=== PATIENT | female | born 1980 | race American Indian/Alaskan Native ===

== ENCOUNTER 2016-05-30 14:57 | Inpatient (IN) | payer MEDICAID ==
[2016-05-30 16:00] LABS: BASO # 0.1 K/uL (0.0-0.2); BASO % 1.2 % (0.0-2.0); EOS # 0.1 K/uL (0.0-0.7); EOS % 1.3 % (0.0-4.0); HEMATOCRIT 41.7 % (34.0-47.0); LYMPH # 2.3 K/uL (1.0-4.3); LYMPH % 30.9 % (20.0-40.0); MEAN CELL VOLUME 86.2 fL (81.0-99.0); MEAN CORPUSCULAR HEMOGLOBIN 28.5 pg (27.0-31.0); MEAN CORPUSCULAR HGB CONC 33.1 g/dL (33.0-37.0); MEAN PLATELET VOLUME 7.9 fL (7.2-11.7); MONO # 0.6 K/uL (0.0-0.8); MONO % 8.4 % (0.0-10.0); NRBC % 0.1 % (0.0-2.0); RED CELL DISTRIBUTION WIDTH 14.6 % (11.5-14.5); WHITE BLOOD COUNT 7.5 K/uL (4.8-10.8)
[2016-05-30 16:06] LABS: CHLORIDE 105 mmol/L (98-107); POTASSIUM 3.7 mmol/L (3.6-5.2); SODIUM 144 mmol/L (132-148)
[2016-05-30 16:08] LABS: BILIRUBIN,TOTAL 0.3 mg/dL (0.2-1.3); CARBON DIOXIDE 22 mmol/L (22-30); GFR AFRICAN-AMERICAN > 60
[2016-05-30 16:09] LABS: ALB/GLOB RATIO 1.5 (1.0-2.1); ALCOHOL SERUM 210 mg/dl (0-10); ALKALINE PHOSPHATASE 49 U/L (38-126); ALT/SGPT 15 U/L (9-52); AST/SGOT 22 U/L (14-36); BLOOD UREA NITROGEN 12 mg/dL (7-17); CALCIUM 8.9 mg/dl (8.6-10.4); GLUCOSE,RANDOM 58 mg/dL (65-105); TOTAL PROTEIN 7.9 g/dL (6.3-8.3)
[2016-05-30 16:15] LABS: RBC URINE 1 /hpf (0-3); URINE BILIRUBIN NEGATIVE (NEGATIVE); URINE BLOOD NEGATIVE (NEGATIVE); URINE COLOR Straw (YELLOW); URINE GLUCOSE (UA) NORMAL (Normal); URINE KETONE NEGATIVE (NEGATIVE); URINE LEUKOCYTE ESTERASE NEG Leu/uL (Negative); URINE PROTEIN NEGATIVE (NEGATIVE); URINE UROBILINOGEN NORMAL mg/dL (0.2-1.0); WBC URINE < 1 /hpf (0-5)
--- NOTE | 2016-05-30 17:15 | C.PDOC ---
History Of Present Illness 35 y/o female presents to the emergency department requesting detox from alcohol. She reports last use this morning. Denies any suicidal ideation or homicidal ideation. She also reports cast to the left ankle due to fracture two weeks prior but denies any pain, weakness, numbness, or other complaints. Note that the patient has already been prescreened for detox. Chief Complaint (Nursing): Medical Clearance History Per: Patient History/Exam Limitations: no limitations Onset/Duration Of Symptoms: Days, Persistent Current Symptoms Are (Timing): Still Present Recent travel outside of the [place]: No Past Medical History Reviewed: Historical Data, Nursing Documentation, Vital Signs Vital Signs: Last Vital Signs Temp 99 F 05/30/16 17:58 Pulse 102 H 05/30/16 17:58 Resp 18 05/30/16 17:58 BP 116/69 05/30/16 17:58 Pulse Ox 98 05/30/16 17:58 - Medical History PMH: HTN Surgical History: No Surg Hx Family History: States: Unknown Family Hx - Social History Hx Tobacco Use: Yes Hx Alcohol Use: Yes Hx Substance Use: Yes Review Of Systems Except As Marked, All Systems Reviewed And Found Negative. Constitutional: Positive for: Other (requesting detox) Musculoskeletal: Negative for: Other (pain) Neurological: Negative for: Weakness, Numbness Psych: Negative for: Suicidal ideation (or homicidal ideation) Physical Exam - Physical Exam Appears: Non-toxic, No Acute Distress Skin: Normal Color, Warm, Dry Head: Atraumatic, Normacephalic Eye(s): bilateral: Normal Inspection, PERRL Oral Mucosa: Moist Neck: Normal ROM, Supple Chest: Symmetrical Cardiovascular: Rhythm Regular Respiratory: Normal Breath Sounds, No Rales, No Rhonchi, No Wheezing Gastrointestinal/Abdominal: Normal Exam, Soft, No Tenderness Extremity: Other (cast observed to left ankle) Neurological/Psych: Oriented x3, Normal Speech, Normal Cognition ED Course And Treatment - Laboratory Results Result Diagrams: 05/30/16 15:49 05/30/16 15:49 O2 Sat by Pulse Oximetry: 100 (ra) Pulse Ox Interpretation: Normal Medical Decision Making Medical Decision Making: Plan: * Labs Patient has been medically cleared and accepted for detox. Disposition - Disposition Disposition: HOSPITALIZED Disposition Time: 16:30 Condition: STABLE - Clinical Impression Clinical Impression: Alcohol dependence - Scribe Statement The provider has reviewed the documentation as recorded by the Scribe (Kateryna King) Provider Attestation: All medical record entries made by the Scribe were at my direction and personally dictated by me. I have reviewed the chart and agree that the record accurately reflects my personal performance of the history, physical exam, medical decision making, and the department course for this patient. I have also personally directed, reviewed, and agree with the discharge instructions and disposition.
[2016-05-31] MEDS: Multiple Vitamins Tab PO SCH (09:54)
--- NOTE | 2016-05-31 12:25 | PCM.PSYCH ---
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 Patient reports of a long history of drinking and schizoaffective disorder. As per the patient she started drinking when she was young. As per the patient couple of weeks ago she fell down at her home and broke her ankle. As a result she started drinking heavily up to 4 pints of vodka on a daily basis. As the patient yesterday she consumed 1 pint of vodka and started experiencing withdrawal symptoms and so came to the hospital to get help. Patient reports of irritable mood, and reports withdrawal symptoms including sweating, headaches, anxiety, and nausea. Patient reports that due to the medication her schizoaffective symptoms are under control. She denies any feelings of hopelessness and helplessness. She denies any suicidal ideation or homicidal ideation. Patient denies any auditory or visual hallucinations or any psychotic symptoms or any manic symptoms. She denies any other substance abuse. Past psychiatric history Patient states history of multiple inpatient psychiatric hospitalizations, and reports history of follow-up with a psychiatrist. Patient denies any history of suicidal ideation or attempt or any history of homicidal ideation or attempt in the past. Patient reports history of auditory & visual hallucinations in the past Past medical history HTN Current Medications: Active Medications Generic Name Dose Route Start Last Admin Trade Name Freq PRN Reason Stop Dose Admin Amlodipine Besylate 5 mg 05/31/16 10:00 05/31/16 09:54 Norvasc PO 5 mg DAILY MALLORY Administration Bacitracin 1 gm 05/31/16 18:00 Bacitracin TOP BID M[facility] Chlordiazepoxide 25 mg 05/30/16 21:05 05/30/16 23:54 Librium PO 25 mg Q4 PRN Administration alcohol withdrawal Chlordiazepoxide 25 mg 05/31/16 06:00 05/31/16 06:51 Librium PO 06/04/16 05:59 25 mg Q6H MALLORY Administration Taper Clonidine HCl 0.1 mg 05/30/16 23:46 05/31/16 06:51 Catapres PO 0.1 mg Q4H PRN Administration Symptoms of alcohol withdrawl Diphenhydramine HCl 25 mg 05/31/16 08:47 05/31/16 09:54 Benadryl PO 25 mg Q6 PRN Administration Itching / Pruritus Fluoxetine HCl 20 mg 05/31/16 10:00 05/31/16 09:54 Prozac PO 20 mg DAILY MALLORY Administration Folic Acid 1 mg 05/31/16 10:00 05/31/16 09:54 Folic Acid PO 1 mg DAILY M[facility]ORY Administration Hydroxyzine HCl 25 mg 05/30/16 23:54 Atarax PO Q4H PRN Anxiety Ibuprofen 600 mg 05/31/16 11:38 05/31/16 12:13 Motrin Tab PO 600 mg TID PRN Administration Pain, moderate (4-7) Multivitamins 1 tab 05/31/16 10:00 05/31/16 09:54 Hexavitamin PO 1 tab DAILY MALLORY Administration Prazosin HCl 1 mg 05/31/16 22:00 Minipress PO HS MALLORY Risperidone 1 mg 05/31/16 10:00 05/31/16 09:54 Risperdal Tab PO Not Given BID [facility] Thiamine HCl 100 mg 05/31/16 10:00 05/31/16 09:54 Vitamin B1 Tab PO 100 mg DAILY MALLORY Administration Topiramate 50 mg 05/31/16 10:00 05/31/16 09:55 Topamax PO 50 mg BID M[facility]ORY Administration Trazodone HCl 50 mg 05/30/16 20:59 Desyrel PO HS PRN insomnia Past Psychiatric History - Past Psychiatric History Previous Treatment History: Inpatient Pertinent Medical Hx (Current Medical&Sleep Prob, Allergies): Allergies Allergy/AdvReac Type Severity Reaction Status Date / Time No Known Allergies Allergy Verified 05/30/16 15:16 Acetaminophen [Tylenol Extra Strength] 500 mg PO Q4 PRN 05/30/16 Bupropion HCl [Bupropion HCl Xl] 150 mg PO DAILY 05/30/16 Fluoxetine HCl [Prozac] 40 mg PO DAILY 05/30/16 Prazosin [Prazosin HCl] 1 mg PO HS 05/30/16 Risperidone [Risperdal] 1 mg PO BID 05/30/16 Topiramate 50 mg PO BID 05/30/16 amLODIPine [Norvasc] 5 mg PO DAILY 05/30/16 oxyCODONE [oxyCODONE Immediate Release Tab] 5 mg PO Q4 PRN 05/30/16 Review of Systems - Review of Systems All systems: reviewed and no additional remarkable complaints except - Psychiatric Psychiatric: Anxiety, Irritability Mental Status Examination - Personal Presentation Personal Presentation: Looks stated age - Affect Affect: Constricted - Motor Activity Motor Activity: Calm - Reliability in Providing Information Reliability in Providing Information: Good - Speech Speech: Organized - Mood Mood: Anxious - Formal Thought Process Formal Thought Process: No Impairment - Obsessions/Compulsions Obsessions: No Compulsions: No - Cognitive Functions Orientation: Person, Place, Situation, Time Sensorium: Alert Attention/Concentration: Attentive Abstract Thinking: [place] Estimate of Intelligence: Below average Judgement: Imparied, as evidence by: Poor judgement, Intact, as evidence by: Insight regarding need for hospitalization - Risk Risk: Withdrawal, Diminished functioning - Strength & Assets Inventory Strength & Assets Inventory: Cooperative - Limitations Limitations: Living alone DSM 5 DX - DSM 5 DSM 5 Diagnosis: Alcohol use disorder severe Alcohol withdrawal uncomplicated Schizoaffective disorder bipolar type - Recommended/Plan of Treatment Treatment Recommendations and Plan of Treatment: Alcohol use disorder severe CBT Psychoeducation Supportive therapy, individual therapy Use MD for abstinence Alcohol withdrawal uncomplicated CBT Psychoeducation Supportive therapy, individual therapy Librium when necessary Start Librium taper Start folic acid/thiamine/multivitamin Schizoaffective disorder bipolar type CBT Psychoeducation Supportive therapy, individual therapy Prozac 20 mg mg PO daily Trazodone 50 mg PO Q HS Risperdal 1 mg by mouth daily twice a day HTN Continue prescribed medications (Amlodipine) Monitor signs and symptoms PTSD Prazosin 1 mg by mouth daily at bedtime - Smoking Cessation Smoking Cessation Initiated: No
--- NOTE | 2016-05-31 17:27 | CP.PCM.CON ---
History of Present Illness - History of Present Illness History of Present Illness: Orthopedic consultation note for Dr. Velasquez: 35 y/o female patient with history of Alcohol abuse seen and evaluated at bedside in DETOX unit after request for consult. Patient states that she had a history of left ankle fracture 2 weeks ago and has a left ankle ORIF surgery at [facility] on last Thursday. Patient c/o left lower extremity pain. Patient denies any symptoms of N/V/F/SOB/Chest pain. Patient was on NWB to the left lower extremity and using crutches for ambulation. Past Patient History - Past Social History Smoking Status: Light Smoker < 10 Cigarettes Daily - CARDIAC Hx Hypertension: Yes - PULMONARY Hx Tuberculosis: No - NEUROLOGICAL HX Cerebrovascular Accident: No Hx Seizures: No - HEMATOLOGICAL/ONCOLOGICAL Hx Cancer: No Hx Human Immunodeficiency Virus (HIV): No - MUSCULOSKELETAL/RHEUMATOLOGICAL Hx Falls: Yes - GENITOURINARY/GYNECOLOGICAL Hx Sexually Transmitted Disorders: No - PSYCHIATRIC Hx Substance Use: No - SURGICAL HISTORY Hx Orthopedic Surgery: Yes (left ankle 2 weeks ago) Meds Allergies/Adverse Reactions: Allergies Allergy/AdvReac Type Severity Reaction Status Date / Time No Known Allergies Allergy Verified 05/30/16 15:16 - Medications Medications: Current Medications Amlodipine Besylate (Norvasc) 5 mg PO DAILY [facility] Last Admin: 05/31/16 09:54 Dose: 5 mg Bacitracin (Bacitracin) 1 gm TOP BID [facility] Chlordiazepoxide (Librium) 25 mg PO Q4 PRN PRN Reason: alcohol withdrawal Last Admin: 05/30/16 23:54 Dose: 25 mg Chlordiazepoxide (Librium) 25 mg PO Q6H MALLORY PRN Reason: Taper Stop: 06/04/16 05:59 Last Admin: 05/31/16 13:20 Dose: 25 mg Clonidine HCl (Catapres) 0.1 mg PO Q4H PRN PRN Reason: Symptoms of alcohol withdrawl Last Admin: 05/31/16 06:51 Dose: 0.1 mg Diphenhydramine HCl (Benadryl) 25 mg PO Q6 PRN PRN Reason: Itching / Pruritus Last Admin: 05/31/16 09:54 Dose: 25 mg Fluoxetine HCl (Prozac) 20 mg PO DAILY [facility] Last Admin: 05/31/16 09:54 Dose: 20 mg Folic Acid (Folic Acid) 1 mg PO DAILY [facility] Last Admin: 05/31/16 09:54 Dose: 1 mg Gabapentin (Neurontin) 300 mg PO TID [facility] Hydroxyzine HCl (Atarax) 25 mg PO Q4H PRN PRN Reason: Anxiety Ibuprofen (Motrin Tab) 600 mg PO TID PRN PRN Reason: Pain, moderate (4-7) Last Admin: 05/31/16 12:13 Dose: 600 mg Multivitamins (Hexavitamin) 1 tab PO DAILY [facility] Last Admin: 05/31/16 09:54 Dose: 1 tab Prazosin HCl (Minipress) 1 mg PO HS [facility] Risperidone (Risperdal Tab) 1 mg PO BID [facility] Last Admin: 05/31/16 09:54 Dose: Not Given Thiamine HCl (Vitamin B1 Tab) 100 mg PO DAILY [facility] Last Admin: 05/31/16 09:54 Dose: 100 mg Topiramate (Topamax) 50 mg PO BID [facility] Last Admin: 05/31/16 09:55 Dose: 50 mg Trazodone HCl (Desyrel) 50 mg PO HS PRN PRN Reason: insomnia Physical Exam - Constitutional Appears: Well, Non-toxic, No Acute Distress - Head Exam Head Exam: ATRAUMATIC - Extremities Exam Additional comments: Left lower extremity focused exam CFT is less than 3 seconds ( x5), Cast is intact, clean and dry. - Neurological Exam Neurological exam: Alert, CN II-XII Intact, Oriented x3 Results - Vital Signs Recent Vital Signs: Last Vital Signs Temp 97.5 F L 05/31/16 14:24 Pulse 92 H 05/31/16 14:24 Resp 16 05/31/16 14:24 BP 121/84 05/31/16 14:24 Pulse Ox 98 05/31/16 14:24 - Labs Result Diagrams: 05/30/16 15:49 05/30/16 15:49 Labs: Laboratory Results - last 24 hr 05/30/16 18:18 POC Glucose (mg/dL) 91 Assessment & Plan - Assessment and Plan (Free Text) Assessment: 35 y/o female patient with left lower extremity pain secondary to tightness of below knee cast. Plan: Patient seen and evaluated at bedside All the questions and concerns were addressed Discussed with attending Dr. Velasquez Left lower extremity cast was Bivalved and created more space for lower extremity LLE x rays: left ankle ORIF with plate and screws, no other bony fractures noted Advised patient to keep NWB to the LLE Will Order Ultram fro prn pain Advised patient to follow up with her Orthopedic doctor for post op care.
[2016-05-31] MEDS: Bacitracin Ointment 30 GM TUBE TOP SCH (18:23)
--- NOTE | 2016-06-01 08:34 | RAD ---
Left ankle three views History: Left ankle open reduction internal fixation. Comparison: None available. Findings Overlying cast obscures fine osseous details. Side plate with screw fixation through the distal left fibula. Impression: Postsurgical changes.
[2016-06-01] MEDS: Multiple Vitamins Tab PO SCH (09:35)
[2016-06-01] MEDS: Bacitracin Ointment 30 GM TUBE TOP SCH ×2 (09:36→19:10)
--- NOTE | 2016-06-01 12:06 | PCM.PYCHPN ---
Psychiatric Progress Note - Psychiatric Progress Note Patient seen today, length of contact: 15 MIN Patient Chief Complaint: I'm in severe pain Problems Identified/Issues Discussed: Patient seen and evaluated, chart reviewed and discussed with the nurse. Patient reports irritability and agitation. She reports withdrawal symptoms including shakes, anxiety, headaches and sweating. She reports of severe pain in her ankle because of plaster of malini. However she denies any auditory hallucinations and persecutory delusions. She remained calm and cooperative and denies any suicidal ideation or homicidal ideation. She is taking medication and denies any side effects. medicine was consulted because of ankle fracture Supportive therapy and psychoeducation were given Medication Change: Yes (Librium taper, DC Risperdal) Medical Record Reviewed: Yes Mental Status Examination - Cognitive Function Orientation: Person, Place, Situation, Time Memory: Intact Concentration: Poor Association: WNL Fund of Knowledge: Poor - Mood Mood: Anxious - Affect Affect: Constricted - Formal Thought Process Formal Thought Process: Delusions - Suicidal Ideation Suicidal Ideation: No - Homicidal Ideation Homicidal Ideation: No Goal/Treatment Plan - Goal/Treatment Plan Need for Continued Stay: Discharge may exacerbated symptoms, Severe functional impairment Progress Toward Problem(s) and Goals/Treatment Plan: Alcohol use disorder severe CBT Psychoeducation Supportive therapy, individual therapy Use [place] for abstinence Alcohol withdrawal uncomplicated CBT Psychoeducation Supportive therapy, individual therapy Librium when necessary Librium taper folic acid/thiamine/multivitamin Schizoaffective disorder bipolar type CBT Psychoeducation Supportive therapy, individual therapy Prozac 20 mg mg PO daily Trazodone 50 mg PO Q HS DC Risperdal 1 mg by mouth daily twice a day HTN Continue prescribed medications (Amlodipine) Monitor signs and symptoms PTSD Prazosin 1 mg by mouth daily at bedtime Left ankle fracture Medicine consulted - Smoking Cessation Smoking Cessation Initiated: No
[2016-06-01] MEDS: buPROPion 150 mg/24 Hours XL Tab PO SCH (14:19)
[2016-06-02] MEDS: Bacitracin Ointment 30 GM TUBE TOP SCH ×2 (10:53→17:35)
[2016-06-02] MEDS: Multiple Vitamins Tab PO SCH (10:54)
[2016-06-02] MEDS: buPROPion 150 mg/24 Hours XL Tab PO SCH (10:54)
--- NOTE | 2016-06-02 13:55 | PCM.PYCHPN ---
Psychiatric Progress Note - Psychiatric Progress Note Patient seen today, length of contact: 16 min Patient Chief Complaint: "Tired" Problems Identified/Issues Discussed: Pt. is a 35 y/o F employed and domiciled , w/ PMHx of EtOH use disorder and HTN here for EtOH detox. Pt. ambulates with two crutches due to broken left ankle. Pt. does not complain of any side-effects to medications, nor does she complain of withdrawal symptoms. Pt. is interested in finding a new outpatient rehab program, because she feels that her previous one ([facility] in [place], [place]) was not strict enough. Pt. also inquires about alternatives to percocet for pain control, and will be prescribed toradol to take home. Medical Problems: Htn Medication Change: Yes (Librium taper, DC Risperdal) Medical Record Reviewed: Yes Mental Status Examination - Cognitive Function Orientation: Person, Place, Situation, Time Memory: Intact Concentration: WNL Association: WN Fund of Knowledge: WNL - Mood Mood: Neutral - Affect Affect: Constricted - Speech Speech: Appropriate - Formal Thought Process Formal Thought Process: No Impairment - Suicidal Ideation Suicidal Ideation: No - Homicidal Ideation Homicidal Ideation: No Goal/Treatment Plan - Goal/Treatment Plan Need for Continued Stay: Discharge may exacerbated symptoms, Severe functional impairment Progress Toward Problem(s) and Goals/Treatment Plan: Continue detox Support and psychoed NE and CBT No change in meds Refer to IOP Estimated Date of D/C: 06/03/16
[2016-06-02 16:10] VITALS: RESP 18
--- NOTE | 2016-06-03 08:51 | PCM.PYCHDC ---
Mental Status Examination - Mental Status Examination Orientation: Person, Place, Situation, Time Memory: Intact Affect: Broad Speech: Appropriate Attention: WNL Concentration: WNL Association: WNL Fund of Knowledge: WNL Formal Thought Process: No Impairment Suicidal Ideation: No Current Homicidal Ideation?: No Discharge Summary - Discharge Note Reason for Hospitalization: Alcohol use disorder severe Alcohol withdrawal uncomplicated Schizoaffective disorder bipolar type Consultations:: List each consultation separately and include: 1. Reason for request. 2. Findings. 3. Follow-up Summary of Hospital Course include:: 1. Description of specific treatment plan utilized for patients during their course of treatmen. 2. Summarize the time- course for resolution of acute symptoms and/or regressed behaviors. 3. Describe issues identified and worked on during hospitalization. 4. Describe medication utilized. 5. Describe medical problems identified and treated. 6. 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 Patient reports of a long history of drinking and schizoaffective disorder. As per the patient she started drinking when she was young. As per the patient couple of weeks ago she fell down at her home and broke her ankle. As a result she started drinking heavily up to 4 pints of vodka on a daily basis. As the patient yesterday she consumed 1 pint of vodka and started experiencing withdrawal symptoms and so came to the hospital to get help. Patient reports of irritable mood, and reports withdrawal symptoms including sweating, headaches, anxiety, and nausea. Patient reports that due to the medication her schizoaffective symptoms are under control. She denies any feelings of hopelessness and helplessness. She denies any suicidal ideation or homicidal ideation. Patient denies any auditory or visual hallucinations or any psychotic symptoms or any manic symptoms. She denies any other substance abuse. Past psychiatric history Patient states history of multiple inpatient psychiatric hospitalizations, and reports history of follow-up with a psychiatrist. Patient denies any history of suicidal ideation or attempt or any history of homicidal ideation or attempt in the past. Patient reports history of auditory & visual hallucinations in the past Past medical history HTN Pt is seen, chart reviewed, case discussed. Pt feels well, without any symptoms and is ready for discharge. Her plan is to attend [facility]. Attended groups and activities NC/CBT used Support and psychoeducation given Librium detox completed Pt responded well to treatment - Final Diagnosis (DSM 5) Condition upon Discharge: STABLE DSM 5: Alcohol use disorder severe Alcohol withdrawal uncomplicated Schizoaffective disorder bipolar type Disposition: HOME/ ROUTINE Follow-up Treatment Plan: Continue below meds Attend aftercare: [facility] Use relapse prevention skills Attend AA meetings Return to ER if experience suicidal ideation, homicidal ideation, agitation Prescriptions/Medication Reconciliation: hydrOXYzine HCl [Atarax] 50 mg PO HS PRN #30 tab PRN Reason: Insomnia DiphenhydrAMINE [Benadryl] 50 mg PO Q8 PRN #60 cap PRN Reason: Anxiety Prazosin HCl [Minipress] 1 mg PO HS #30 cap Gabapentin [Neurontin] 300 mg PO TID #90 cap Nicotine 21 mg/24 hr [Nicoderm Cq] 1 patch TD DAILY #30 patch amLODIPine [Norvasc] 5 mg PO DAILY #30 tab FLUoxetine [Prozac] 20 mg PO DAILY #30 cap Topiramate [Topamax] 50 mg PO BID #60 tab traMADol [Ultram] 50 mg PO BID PRN #60 tab PRN Reason: Pain, Mild (1-3) buPROPion XL [Wellbutrin XL] 150 mg PO DAILY #30 t24 - Smoking Cessation Smoking Cessation Medication prescribed: No - Antipsychotic Medications Pt discharged on 2 or more routine antipsychotic medications: No
[2016-06-03] MEDS: Multiple Vitamins Tab PO SCH (09:40)
[2016-06-03] MEDS: buPROPion 150 mg/24 Hours XL Tab PO SCH (09:40)
[2016-06-03] MEDS: Bacitracin Ointment 30 GM TUBE TOP SCH (09:51)
[2016-06-03 13:30] VITALS: BP 101/66; PULSE 95; TEMP 97.3; O2SAT 100
== END 2016-06-03 14:00 | disposition home or self-care (01) | DRG 750 ==
LOC: C.ER 14:57 → C.7D 17:49
PROVIDERS: ADMIT Psychiatry & Neurology Psychiatry; ATTEND Psychiatry & Neurology Psychiatry
PROC: HZ2ZZZZ Detoxification Services for Substance Abuse Treatment (ICD-10-PCS; principal; 2016-05-30)
PROC: HZ59ZZZ Individual Psychotherapy for Substance Abuse Treatment, Supportive (ICD-10-PCS; 2016-05-30)
PROC: GZ3ZZZZ Medication Management (ICD-10-PCS; 2016-05-30)
PROC: GZ56ZZZ Individual Psychotherapy, Supportive (ICD-10-PCS; 2016-05-30)
DX: F10.230 Alcohol dependence with withdrawal, uncomplicated (principal); F25.0 Schizoaffective disorder, bipolar type; F43.10 Post-traumatic stress disorder, unspecified; I10 Essential (primary) hypertension; W19.XXXD Unspecified fall, subsequent encounter; S82.892D Other fracture of left lower leg, subsequent encounter for closed fracture with routine healing

== ENCOUNTER 2017-08-14 14:29 | Inpatient (IN) | payer MEDICAID ==
[2017-08-14 15:22] LABS: SQUAMOUS EPITHIAL 3 /hpf (0-5); URINE BILIRUBIN NEGATIVE (NEGATIVE); URINE BLOOD NEGATIVE (NEGATIVE); URINE CLARITY Clear (Clear); URINE COLOR Yellow (YELLOW); URINE GLUCOSE (UA) NORMAL (Normal); URINE LEUKOCYTE ESTERASE NEG Leu/uL (Negative); URINE PROTEIN NEGATIVE (NEGATIVE); URINE UROBILINOGEN NORMAL mg/dL (0.2-1.0)
[2017-08-14 15:31] LABS: BASO # 0.1 K/uL (0.0-0.2); BASO % 0.9 % (0.0-2.0); EOS # 0.2 K/uL (0.0-0.7); EOS % 2.8 % (0.0-4.0); HEMOGLOBIN 11.5 g/dL (11.0-16.0); LYMPH # 2.2 K/uL (1.0-4.3); LYMPH % 24.9 % (20.0-40.0); MEAN CELL VOLUME 82.5 fL (81.0-99.0); MEAN CORPUSCULAR HEMOGLOBIN 27.6 pg (27.0-31.0); MEAN CORPUSCULAR HGB CONC 33.5 g/dL (33.0-37.0); MEAN PLATELET VOLUME 7.7 fL (7.2-11.7); MONO # 0.6 K/uL (0.0-0.8); MONO % 6.5 % (0.0-10.0); NEUT # 5.6 K/uL (1.8-7.0); NEUT % 64.9 % (50.0-75.0); RBC 4.17 Mil/uL (3.80-5.20); RED CELL DISTRIBUTION WIDTH 14.8 % (11.5-14.5); WHITE BLOOD COUNT 8.7 K/uL (4.8-10.8)
[2017-08-14 15:43] LABS: BARBITURATES, UR NEGATIVE (NEGATIVE); BENZODIAZEPINES, UR NEGATIVE (NEGATIVE); OPIATES, UR NEGATIVE (NEGATIVE); PHENCYCLIDINE, UR NEGATIVE (NEGATIVE)
--- NOTE | 2017-08-14 15:51 | C.PDOC ---
History Of Present Illness 36 y/o female with PMHx of alcohol and benzo abuse, comes in to the ED requesting detox. Last use was earlier today. Patient denies any active physical complaints. Also denies having suicidal or homicidal ideation. Time Seen by Provider: 08/14/17 14:56 Chief Complaint (Nursing): Substance Abuse History Per: Patient History/Exam Limitations: no limitations Onset/Duration Of Symptoms: Days Current Symptoms Are (Timing): Still Present Modifying Factor(s): Alcohol, Other (Benzos) Past Medical History Reviewed: Historical Data, Nursing Documentation, Vital Signs Vital Signs: Last Vital Signs Temp 98.7 F 08/14/17 16:17 Pulse 85 08/14/17 16:17 Resp 18 08/14/17 16:17 BP 136/94 H 08/14/17 16:17 Pulse Ox 97 08/14/17 16:17 - Medical History PMH: Anxiety, Bipolar Disorder, Depression, HTN, Post Traumatic Stress Disorder , Schizophrenia Denies: Diabetes, Hepatitis, HIV, Seizures, Sexually Transmitted Disease Other PMH: alcohol and substance abuse - [facility] Procedures DETOXIFICATION SERVICES FOR SUBSTANCE ABUSE TREATMENT (05/30/16) INDIV PSYCHOTHERAPY FOR SUBSTANCE ABUSE TREATMENT, SUPPORT (05/30/16) INDIVIDUAL PSYCHOTHERAPY, SUPPORTIVE (05/30/16) MEDICATION MANAGEMENT (05/30/16) Family History: States: Unknown Family Hx - Social History Hx Tobacco Use: Yes Hx Alcohol Use: Yes Hx Substance Use: No - Immunization History Hx Tetanus Toxoid Vaccination: No Hx Influenza Vaccination: Yes Hx Pneumococcal Vaccination: No Review Of Systems Constitutional: Negative for: Fever Respiratory: Negative for: Shortness of Breath Gastrointestinal: Negative for: Vomiting Psych: Positive for: Other (alcohol/substance abuse). Negative for: Suicidal ideation, Withdrawal Physical Exam - Physical Exam Appears: Well, Non-toxic, No Acute Distress Skin: Normal Color, Warm, No Rash Head: Atraumatic, Normacephalic Eye(s): bilateral: PERRL Ear(s): Bilateral: Normal Nose: No Flaring, No Discharge Oral Mucosa: Moist, No Drooling Tongue: Normal Appearing Throat: No Drooling Neck: Normal ROM, Trachea Midline, No Midline Cervical Tenderness, No Step Off Deformity, Supple Chest: Symmetrical, No Deformity, No Tenderness Cardiovascular: Rhythm Regular Respiratory: Normal Breath Sounds, No Rales, No Rhonchi, No Wheezing Gastrointestinal/Abdominal: Soft, No Tenderness, No Distention, No Guarding Back: No Vertebral Tenderness Extremity: Normal ROM, No Deformity, No Swelling Extremity: Bilateral: Atraumatic, Normal Color And Temperature, Normal ROM Neurological/Psych: Oriented x3, Normal Speech, Normal Cranial Nerves, Normal Motor, Normal Sensation ED Course And Treatment - Laboratory Results Result Diagrams: 08/14/17 15:25 08/14/17 15:25 Lab Interpretation: Normal Urine POC: Negative O2 Sat by Pulse Oximetry: 99 (RA) Pulse Ox Interpretation: Normal Progress Note: Patient was pre-screened for detox. Blood work and urine sent. Labs, UA review and appears normal. Patient is medically cleared for detox. 15: 51 Received call from dock worker, patient accepted to detox unit as per Dr. Pressley with Dx: Alcohol dependance. Pt remained stable during the ED evaluation , agrees with plan. Disposition Discussed With : Leisa Pressley Doctor Will See Patient In The: Hospital - Disposition Disposition: HOSPITALIZED Disposition Time: 15:51 Condition: STABLE - POA Present On Arrival: None - Clinical Impression Clinical Impression: Alcohol dependence - PA / GREEN FEED ATTENDANT / Resident Statement MD/DO has reviewed & agrees with the documentation as recorded. - Scribe Statement The provider has reviewed the documentation as recorded by the Scribe (Francia Mercado) All medical record entries made by the Scribe were at my direction and personally dictated by me. I have reviewed the chart and agree that the record accurately reflects my personal performance of the history, physical exam, medical decision making, and the department course for this patient. I have also personally directed, reviewed, and agree with the discharge instructions and disposition.
[2017-08-14 16:27] LABS: ALB/GLOB RATIO 1.3 (1.0-2.1); ALT/SGPT 21 U/L (9-52); AST/SGOT 27 U/L (14-36); BLOOD UREA NITROGEN 17 mg/dL (7-17); CALCIUM 9.1 mg/dl (8.6-10.4); GFR AFRICAN-AMERICAN > 60; GFR NON-AFRICAN AMERICAN > 60
[2017-08-14] MEDS: Multiple Vitamins Tab PO SCH (17:54)
--- NOTE | 2017-08-14 22:03 | PCM.BM ---
<Ifrah Hernández - Last Filed: 08/14/17 22:01> Treatment Plan Problems - Problems identified on initial assessmt Potential for alcohol withdrawal Date Initiated: 08/14/17 Time Initiated: 22:02 Assessment reference: NA Treatment assets and liabiliti Patient Assests: ADL independent, negotiates basic needs, cognitively intact Patient Liabilities: poor support system, substance abuse (ETOH), medical problems (HTN), other (homeless) - Milieu Protocol Maintain good personal hygiene: daily Encourage regular showers, daily Remind patient to perform daily oral care, daily Assist patient to perform ADL's Conduct patient checks and document Observation sheet: Q15 minutes Maintain personal safety: every shift Educate patient to report safety concerns to staff, every shift Monitor environment for contraband/sharps Medication safety: Monitor for expected outcome, potential side effects: every shift, Assess barriers to learning: every shift, Assess readiness for medication education: every shift <Eliezer Elias - Last Filed: 08/15/17 18:06> - Diagnosis (1) Alcohol use disorder, severe, dependence Status: Acute Interventions: 08/15/17 17:54 * Assess 7x/week regarding severity of withdrawal * Educate regarding risks, benefits, side effects and alternatives of medications * Use Motivational Interviewing for abstinence * Use CBT for relapse prevention * Medication management for withdrawal symptoms * Encourage medication assisted treatment (2) Schizoaffective disorder, bipolar type Status: Acute Interventions: 08/15/17 18:06 * Assess/adjust medications daily and /or as needed * See patient on an individual basis 7x/week to assess symptoms of depression * Monitor for side effects & effectiveness of medications (3) Chronic post-traumatic stress disorder (PTSD) Status: Acute Interventions: 08/15/17 18:06 * Assess/adjust medications daily and /or as needed * See patient on an individual basis 7x/week to assess symptoms of depression * Monitor for side effects & effectiveness of medications <Afua Gonsalves - Last Filed: 08/17/17 08:18> Family Contact Family involvement: Famliy/SO not involved - Goals for Treatment Patient goals for treatment: Complete detox and apply for short term rehab. Discharge/Continuing Care - Education Needs Education Needs: Patient Medication, Patient Diagnosis/Disease Process, Patient Coping Skills, Patient Anger Management skills, Patient Placement options, Patient Community resources - Discharge Discharge Criteria: No longer exhibiting s/s of withdrawal, Reduction of target symptoms Discharge to:: Substance Abuse Rehab - Treatment Team Participation Patient/Family/SO Statement: 08/17/17 08:18 "I wanna go to a 30-day rehab when I'm done..." Discussed with Family/SO: No Was Patient/Family/SO present at Treatment Team Meeting: Yes
[2017-08-15] MEDS: Multiple Vitamins Tab PO SCH (10:28)
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
[2017-08-15] MEDS: Aritificial Tears (15ml) OU PRN (20:40)
[2017-08-16] MEDS: Multiple Vitamins Tab PO SCH (10:46)
--- NOTE | 2017-08-16 16:14 | PCM.PYCHPN ---
Psychiatric Progress Note - Psychiatric Progress Note Patient seen today, length of contact: 15 minute Patient Chief Complaint: I'm still feeling anxiety. Problems Identified/Issues Discussed: Patient seen, chart reviewed, case discussed with the staff. Issues related to illness and treatment were discussed with the patient. Reported compliant with treatment with no adverse affects. Tolerating treatment very well. Reported not feeling better, still feeling anxiety. Aftercare discussed with the patient. At the time of evaluation, patient was awake alert oriented 3, had no delusions , no auditory or visual hallucinations, no suicidal ideations or homicidal ideations. Medical Problems: Hypertension Diagnostic Results: Reviewed DSM 5 Symptoms Update: Some improvement with treatment Medication Change: No Medical Record Reviewed: Yes Mental Status Examination - Cognitive Function Orientation: Person, Place, Situation, Time Memory: Intact Attention: WNL Concentration: WNL Association: [facility] Fund of Knowledge: [facility] Decription of patient's judgement and insights: Fair - Mood Mood: Depressed - Affect Affect: Depressed - Speech Speech: Appropriate - Formal Thought Process Formal Thought Process: No Impairment Psychotic Thoughts and Behaviors: None - Suicidal Ideation Suicidal Ideation: No - Homicidal Ideation Homicidal Ideation: No Goal/Treatment Plan - Goal/Treatment Plan Need for Continued Stay: Remain at risks for inpatient hospitalization, Discharge may exacerbated symptoms, Severe functional impairment Progress Toward Problem(s) and Goals/Treatment Plan: Patient education. Supportive therapy. CBT for relapse prevention. CO for abstinence. Continue treatment as before. Patient wants to go to a 28 day rehabilitation after discharge from the hospital. Estimated Date of D/C: 08/19/17 - Smoking Cessation Smoking Cessation Initiated: Yes
[2017-08-16] MEDS ORDERED: Aluminum Hydroxide/Magnesium Hydroxide Susp (30 mL) PO PRN (22:30)
[2017-08-16] MEDS: Aritificial Tears (15ml) OU PRN (23:12)
--- NOTE | 2017-08-17 09:33 | RAD ---
HISTORY: rehab COMPARISON: No prior. TECHNIQUE: Chest PA and lateral FINDINGS: LUNGS: No active pulmonary disease. PLEURA: No significant pleural effusion identified. No pneumothorax apparent. CARDIOVASCULAR: Normal. OSSEOUS STRUCTURES: No significant abnormalities. VISUALIZED UPPER ABDOMEN: Normal. OTHER FINDINGS: None. IMPRESSION: No active disease.
[2017-08-17] MEDS: Multiple Vitamins Tab PO SCH (09:37)
[2017-08-17] MEDS: Aritificial Tears (15ml) OU PRN (09:38)
--- NOTE | 2017-08-17 11:18 | PCM.PYCHPN ---
Psychiatric Progress Note - Psychiatric Progress Note Patient seen today, length of contact: 15 minute Medication Change: Yes (detox changes daily) Medical Record Reviewed: Yes Mental Status Examination - Cognitive Function Orientation: Person, Place, Situation, Time Memory: Intact Attention: WNL Concentration: WNL Association: WNL Fund of Knowledge: WNL - Mood Mood: Depressed - Affect Affect: Constricted, Depressed - Speech Speech: Appropriate - Formal Thought Process Formal Thought Process: No Impairment - Suicidal Ideation Suicidal Ideation: No - Homicidal Ideation Homicidal Ideation: No Goal/Treatment Plan - Goal/Treatment Plan Need for Continued Stay: Remain at risks for inpatient hospitalization, Discharge may exacerbated symptoms, Severe functional impairment Estimated Date of D/C: 08/19/17
[2017-08-17 16:29] VITALS: RESP 18
[2017-08-17] MEDS: Vitamins A & D Oint UD Foilpak TOP SCH (17:12)
[2017-08-18] MEDS: Multiple Vitamins Tab PO SCH (09:21)
[2017-08-18] MEDS: Vitamins A & D Oint UD Foilpak TOP SCH ×2 (09:26→17:11)
--- NOTE | 2017-08-18 12:03 | PCM.PYCHPN ---
Psychiatric Progress Note - Psychiatric Progress Note Patient seen today, length of contact: 15 minute Patient Chief Complaint: "I'm anxious" Medication Change: Yes (detox changes daily) Medical Record Reviewed: Yes Mental Status Examination - Cognitive Function Orientation: Person, Place, Situation, Time Memory: Intact Attention: WNL Concentration: WNL Association: WNL Fund of Knowledge: WNL - Mood Mood: Depressed - Affect Affect: Constricted, Depressed - Speech Speech: Appropriate - Formal Thought Process Formal Thought Process: No Impairment - Suicidal Ideation Suicidal Ideation: No - Homicidal Ideation Homicidal Ideation: No Goal/Treatment Plan - Goal/Treatment Plan Need for Continued Stay: Remain at risks for inpatient hospitalization, Discharge may exacerbated symptoms, Severe functional impairment Estimated Date of D/C: 08/19/17
[2017-08-18] MEDS ORDERED: Magnesium Hydroxide Susp 30 ml UD PO PRN (18:39)
[2017-08-19] MEDS: Multiple Vitamins Tab PO SCH (09:23)
[2017-08-19] MEDS: Vitamins A & D Oint UD Foilpak TOP SCH (09:23)
--- NOTE | 2017-08-19 09:50 | PCM.PYCHDC ---
Mental Status Examination - Mental Status Examination Orientation: Person Discharge Summary - Discharge Note Consultations:: List each consultation separately and include: 1. Reason for request. 2. Findings. 3. Follow-up Summary of Hospital Course include:: 1. Description of specific treatment plan utilized for patients during their course of treatmen. 2. Summarize the time- course for resolution of acute symptoms and/or regressed behaviors. 3. Describe issues identified and worked on during hospitalization. 4. Describe medication utilized. 5. Describe medical problems identified and treated. 6. Reassessment of suicide risk Summary of Hospital Course: She is accepted by [facility] rehab. - Final Diagnosis (DSM 5) Condition upon Discharge: STABLE Disposition: HOME/ ROUTINE Prescriptions/Medication Reconciliation: amLODIPine [Norvasc] 5 mg PO DAILY #30 tab Benztropine [Cogentin] 1 mg PO QPM #30 tab Cyclobenzaprine [Flexeril] 5 mg PO TID #90 tab Gabapentin [Neurontin] 300 mg PO TID #90 cap Haloperidol [Haldol] 10 mg PO QPM #30 tab Mirtazapine [Remeron] 15 mg PO HS #30 tab Naltrexone [Revia] 50 mg PO DAILY #30 tab Topiramate [Topamax] 50 mg PO BID #60 tab traZODone [Desyrel] 50 mg PO HS PRN #30 tab PRN Reason: Insomnia
[2017-08-19 10:45] VITALS: BP 105/71; PULSE 100; TEMP 97.7; O2SAT 100
== END 2017-08-19 10:30 | disposition home or self-care (01) | DRG 750 ==
LOC: C.ER 14:29 → C.7D 15:51
PROVIDERS: ADMIT Psychiatry & Neurology Psychiatry; ATTEND Psychiatry & Neurology Psychiatry
DX: F10.10 Alcohol abuse, uncomplicated (principal); F25.0 Schizoaffective disorder, bipolar type; Y90.9 Presence of alcohol in blood, level not specified; F17.210 Nicotine dependence, cigarettes, uncomplicated; F43.12 Post-traumatic stress disorder, chronic; I10 Essential (primary) hypertension; Z59.0 Homelessness